=== PATIENT | male | born 1945 | race Caucasian/White ===

== ENCOUNTER 2018-09-17 02:14 | Emergency (ER) | payer OTHER ==
[~2018-09-17] VITALS: Ht 177.8 cm; Wt 84.0 kg
[~2018-09-17 02:14] MED LIST: ALLO300T PO; AMLO10TA6 PO; LEVE100S6 PO; METF-649 PO; levetiracetam PO; metformin; protonix
[2018-09-17 02:34] LABS: BASOPHILS # (AUTO) 0.03 x10^3/uL (0-0.1); BASOPHILS % (AUTO) 0 % (0-1); EOSINOPHILS # (AUTO) 0.08 x10^3/uL (0-0.4); EOSINOPHILS % (AUTO) 1 % (1-7); LYMPHOCYTES # (AUTO) 0.84 x10^3/uL (1-3.4); LYMPHOCYTES % (AUTO) 9 % (22-44); MD NO; MEAN CORPUSCULAR HGB CONC 33.7 g/dL (33.2-36.2); MEAN PLATELET VOLUME 10.4 fL (7.4-10.4); MONOCYTES # (AUTO) 0.59 x10^3/uL (0.2-0.8); MONOCYTES % (AUTO) 6 % (2-9); NEUTROPHILS # (AUTO) 7.84 x10^3/uL (1.8-6.8); NEUTROPHILS % (AUTO) 84 % (42-75); PLATELET COUNT 143 x10^3/uL (130-400); RED BLOOD COUNT 4.79 x10^6/uL (4.38-5.82); RED CELL DISTRIBUTION WIDTH 14.5 % (9.4-14.8)
[2018-09-17 02:45] LABS: MICROSCOPIC AUTO
[2018-09-17 02:46] LABS: ALBUMIN 3.9 g/dL (3.4-5.0); ANION GAP 15 mmol/L (5-15); CALCIUM 8.9 mg/dL (8.5-10.1); CHLORIDE 104 mmol/L (98-107)
[2018-09-17] MEDS ORDERED: ALLO300T PO (02:47)
[2018-09-17] MEDS ORDERED: PANT20TA3 PO (02:47)
[2018-09-17] MEDS ORDERED: LEVE250T28 PO (02:47)
[2018-09-17 02:48] LABS: CULTURE INDICATED? NO
[2018-09-17] MEDS ORDERED: LEVETIRACETAM 1,000 MG in SODIUM CHLORIDE 0.9% 100 ML IV ONE (03:30)
[2018-09-17 03:49] VITALS: BP 127/76
== END 2018-09-17 04:46 | disposition home or self-care (01) ==
LOC: ED 03:55
DX: G40.409 Other generalized epilepsy and epileptic syndromes, not intractable, without status epilepticus (principal); I10 Essential (primary) hypertension; E11.9 Type 2 diabetes mellitus without complications; Z87.891 Personal history of nicotine dependence
CPT/HCPCS: 36415; 70450; 80048; 81001; 82040; 85025; 93005; J1953; 96365

== ENCOUNTER 2019-02-10 01:17 | Emergency (ER) | payer MEDICARE ==
[~2019-02-10] VITALS: Ht 182.9 cm; Wt 88.3 kg
[~2019-02-10 01:17] MED LIST changes: -AMLO10TA6 PO; +AMLO10TA8 PO; +LEVE250T28 PO; +PANT20TA3 PO
--- NOTE | 2019-02-10 01:50 | NUR ---
FIRST CONTACT WITH PT. PT REPORTS WAKING UP ON THE FLOOR NEXT TO THE BED, BLEEDING. PT HAS A LAC NOTED UNDER THE RIGHT EYE, BRUISING NOTED TO RIGHT EYE. DENIES ANY MAJOR, BLURRED VISION, NECK OR BACK PAIN. PT HAS A HX OF SEIZURES. DOES NOT TAKE ANY ANTICOAGULANTS. BLEEDING CONTROLLED. PT'S AOX4. RESPS EVEN AND UNLABORED. ALL MONITORS IN PLACE. EDMD AT BEDSIDE TO ASSESS AT THIS TIME.
[2019-02-10] MEDS ORDERED: LIDOCAINE-MPF 1%, 2ML ONE (02:27)
[2019-02-10] MEDS ORDERED: LIDOCAINE-MPF 1%, 5ML INFIL ONE (02:30)
[2019-02-10 02:35] LABS: BASOPHILS # (AUTO) 0.06 x10^3/uL (0-0.1); BASOPHILS % (AUTO) 1 % (0-1); EOSINOPHILS % (AUTO) 1 % (1-7); LYMPHOCYTES # (AUTO) 0.63 x10^3/uL (1-3.4); LYMPHOCYTES % (AUTO) 6 % (22-44); MD NO; MEAN CORPUSCULAR HEMOGLOBIN 30.2 pg (27.5-34.5); MEAN CORPUSCULAR VOLUME 88.9 fL (81-97); MEAN PLATELET VOLUME 10.5 fL (7.4-10.4); MONOCYTES # (AUTO) 0.49 x10^3/uL (0.2-0.8); MONOCYTES % (AUTO) 5 % (2-9); NEUTROPHILS # (AUTO) 9.64 x10^3/uL (1.8-6.8); NEUTROPHILS % (AUTO) 88 % (42-75); PLATELET COUNT 142 x10^3/uL (130-400); RED BLOOD COUNT 4.74 x10^6/uL (4.38-5.82); RED CELL DISTRIBUTION WIDTH 15.2 % (9.4-14.8)
--- NOTE | 2019-02-10 02:36 | NUR ---
PT AMB TO BR WITH STEADY GAIT.
[2019-02-10 02:46] LABS: ANION GAP 5 mmol/L (5-15); CALCIUM 8.8 mg/dL (8.5-10.1); CHLORIDE 104 mmol/L (98-107); CREATININE 1.36 mg/dL (0.7-1.3)
[2019-02-10 02:50] LABS: TROPONIN I < 0.015 ng/mL (0.000-0.045)
--- NOTE | 2019-02-10 03:07 | NUR ---
EMT CLEANED WOUND AT THIS TIME. PT TOLERATED WELL.
--- NOTE | 2019-02-10 03:52 | NUR ---
PA APPLIED SUTURES ON PT'S LAC. PT TOLERATED WELL. PT'S AOX4. RESPS EVEN AND UNLABORED.
[2019-02-10] MEDS ORDERED: BACITRACIN ZINC OINT 500U/GM, 0.9 GM ONE (04:08)
[2019-02-10 04:13] VITALS: BP 136/82
--- NOTE | 2019-02-10 04:14 | NUR ---
PT GIVEN DC INSTRUCTIONS. PT'S AOX4. RESPS EVEN AND UNLABORED. PT AMB TO DC WITH STEADY GAIT. NO ACUTE DISTRESS AT DC.
== END 2019-02-10 04:15 | disposition home or self-care (01) ==
LOC: ED 02:07
DX: S06.0X0A Concussion without loss of consciousness, initial encounter (principal); S01.412A Laceration without foreign body of left cheek and temporomandibular area, initial encounter; S01.111A Laceration without foreign body of right eyelid and periocular area, initial encounter; G40.309 Generalized idiopathic epilepsy and epileptic syndromes, not intractable, without status epilepticus; I10 Essential (primary) hypertension; E11.9 Type 2 diabetes mellitus without complications; W06.XXXA Fall from bed, initial encounter; Y93.89 Activity, other specified; Y92.009 Unspecified place in unspecified non-institutional (private) residence as the place of occurrence of the external cause; Y99.8 Other external cause status
CPT/HCPCS: 12002; 12013; 36415; 70450; 80048; 82040; 84484; 85025; 93005; 99284

== ENCOUNTER 2019-04-02 18:06 | Inpatient (IN) | payer MEDICARE ==
[~2019-04-02] VITALS: Ht 182.9 cm; Wt 83.4 kg
[2019-04-02] MEDS ORDERED: MONT10TA9 PO (18:29)
[2019-04-02] MEDS ORDERED: ATOR20TA37 PO (18:30)
[2019-04-02] MEDS ORDERED: SODIUM CHLORIDE FLUSH 10ML SYR IVF ONE (18:30)
[2019-04-02] MEDS ORDERED: PANT20TA3 PO (18:34)
[2019-04-02] MEDS ORDERED: METO25TA91 PO (18:51)
[2019-04-02 18:55] LABS: BASOPHILS # (AUTO) 0.03 x10^3/uL (0-0.1); BASOPHILS % (AUTO) 0 % (0-1); EOSINOPHILS # (AUTO) 0.12 x10^3/uL (0-0.4); EOSINOPHILS % (AUTO) 1 % (1-7); LYMPHOCYTES # (AUTO) 0.55 x10^3/uL (1-3.4); LYMPHOCYTES % (AUTO) 6 % (22-44); MD NO; MEAN CORPUSCULAR HEMOGLOBIN 30.3 pg (27.5-34.5); MEAN CORPUSCULAR HGB CONC 33.4 g/dL (33.2-36.2); MEAN CORPUSCULAR VOLUME 90.7 fL (81-97); MEAN PLATELET VOLUME 10.5 fL (7.4-10.4); MONOCYTES # (AUTO) 0.27 x10^3/uL (0.2-0.8); MONOCYTES % (AUTO) 3 % (2-9); NEUTROPHILS # (AUTO) 8.13 x10^3/uL (1.8-6.8); NEUTROPHILS % (AUTO) 89 % (42-75); PLATELET COUNT 145 x10^3/uL (130-400); RED BLOOD COUNT 4.48 x10^6/uL (4.38-5.82); RED CELL DISTRIBUTION WIDTH 14.6 % (9.4-14.8)
--- NOTE | 2019-04-02 19:00 | NUR ---
ASSUMED CARE FOR THIS PT. PT WITH SZ PADS IN PLACE AND FAMILY AT BEDSIDE. PT WITH VSS AND IN NO DISTRESS WITH NO SZ ACTIVITY AT THIS TIME.
[2019-04-02 19:02] LABS: INTERNATIONAL NORMALIZED RATIO 1.04 (0.93-1.1); PROTHROMBIN TIME 10.9 Seconds (9.6-11.5)
[2019-04-02 19:03] LABS: ALBUMIN 3.8 g/dL (3.4-5.0); ANION GAP 7 mmol/L (5-15); CALCIUM 8.7 mg/dL (8.5-10.1); CHLORIDE 106 mmol/L (98-107)
[2019-04-02 19:09] LABS: ALANINE AMINOTRANSFERASE 40 U/L (12-78); ALKALINE PHOSPHATASE 82 U/L (45-117); BILIRUBIN,TOTAL 0.7 mg/dL (0.2-1.0); CREATININE 1.34 mg/dL (0.7-1.3); TOTAL PROTEIN 6.5 g/dL (6.4-8.2); TROPONIN I 0.053 ng/mL (0.000-0.045)
--- NOTE | 2019-04-02 20:04 | NUR ---
PT AWAITING CTA AND ERP RECHECK.
--- NOTE | 2019-04-02 20:55 | NUR ---
PT BACK FROM CTA AWAITING RESULTS AND ERP RECHECK
[2019-04-02] MEDS ORDERED: OMNIPAQUE 350 MG/ML, 100ML BOTTLE ONE (20:57)
--- NOTE | 2019-04-02 22:03 | NUR ---
PATIENT TAKEN OFF OXYGEN TO DETERMINE ROOM AIR 02 STAT. PATIENT 93% ON O2 AND DROPPED DOWN TO 88% ON ROOM AIR W/O O2. PATIENT WAS SLEEPING.
--- NOTE | 2019-04-02 22:11 | NUR ---
PT PLACED BACK ON O2 AFTER PULSE DROPED TO 82% ON RA.
[2019-04-02] MEDS ORDERED: ASPIRIN 81 MG TABLET CHEW PO ONE (22:30)
--- NOTE | 2019-04-02 22:41 | NUR ---
REPORT CALLED TO FLOOR PT READY TO GO.
[2019-04-02 23:54] VITALS: BP 136/75
[2019-04-03] MEDS ORDERED: SODIUM CHLORIDE 0.9% 1,000 ML IV SCH (00:39)
[2019-04-03] MEDS ORDERED: LEVETIRACETAM 100 MG/ML ORAL SOL PO ONE (01:00)
[2019-04-03] MEDS ORDERED: DOCUSATE 100 MG CAPSULE PO PRN (01:00)
[2019-04-03] MEDS ORDERED: hydrALAzine 20 MG/ML, 1ML IVPush PRN (01:00)
[2019-04-03] MEDS ORDERED: ACETAMINOPHEN 325 MG TABLET PO PRN (01:00)
[2019-04-03] MEDS ORDERED: ONDANSETRON ODT 4 MG PO PRN (01:00)
[2019-04-03] MEDS ORDERED: HEPARIN 5,000 UNITS/ML, 1ML ONE (01:09)
[2019-04-03] MEDS: HEPARIN 5,000 UNITS/ML, 1ML SQ SCH ×3 (01:12→17:08)
[2019-04-03 01:50] LABS: TROPONIN I 0.078 ng/mL (0.000-0.045)
[2019-04-03 02:43] VITALS: BP 148/74
[2019-04-03 05:53] LABS: TROPONIN I 0.056 ng/mL (0.000-0.045)
[2019-04-03 07:18] VITALS: BP 138/74
[2019-04-03] MEDS: INSULIN LISPRO 100 UNITS/ML, PEN SQ-INSULIN SCH ×4 (08:20→20:17)
[2019-04-03] MEDS: MONTELUKAST 10 MG TABLET PO SCH (08:29)
[2019-04-03] MEDS: LEVETIRACETAM 100 MG/ML ORAL SOL PO SCH ×2 (08:29→20:17)
[2019-04-03] MEDS: PANTOPRAZOLE 20MG TABLET PO SCH (08:29)
[2019-04-03] MEDS: METOPROLOL SUCCINATE 25 MG TAB.ER.24H PO SCH (08:30)
[2019-04-03] MEDS ORDERED: GADOBUTROL 10 MMOL/10 ML PFS ONE (08:54)
[2019-04-03 13:41] VITALS: BP 111/68
[2019-04-03] MEDS: ATORVASTATIN 20 MG TABLET PO SCH (20:17)
[2019-04-03 21:58] VITALS: BP 108/61
[2019-04-04] MEDS: HEPARIN 5,000 UNITS/ML, 1ML SQ SCH ×3 (01:19→17:23)
[2019-04-04 03:00] VITALS: BP 108/69
[2019-04-04 06:24] LABS: BASOPHILS # (AUTO) 0.04 x10^3/uL (0-0.1); BASOPHILS % (AUTO) 1 % (0-1); EOSINOPHILS # (AUTO) 0.15 x10^3/uL (0-0.4); EOSINOPHILS % (AUTO) 3 % (1-7); LYMPHOCYTES # (AUTO) 1.22 x10^3/uL (1-3.4); LYMPHOCYTES % (AUTO) 21 % (22-44); MD NO; MEAN CORPUSCULAR HEMOGLOBIN 29.9 pg (27.5-34.5); MEAN CORPUSCULAR HGB CONC 33.4 g/dL (33.2-36.2); MEAN CORPUSCULAR VOLUME 89.7 fL (81-97); MEAN PLATELET VOLUME 10.9 fL (7.4-10.4); MONOCYTES # (AUTO) 0.39 x10^3/uL (0.2-0.8); MONOCYTES % (AUTO) 7 % (2-9); NEUTROPHILS # (AUTO) 4.09 x10^3/uL (1.8-6.8); NEUTROPHILS % (AUTO) 69 % (42-75); PLATELET COUNT 127 x10^3/uL (130-400); RED BLOOD COUNT 4.63 x10^6/uL (4.38-5.82); RED CELL DISTRIBUTION WIDTH 14.4 % (9.4-14.8)
[2019-04-04 06:28] LABS: ANION GAP 7 mmol/L (5-15); CALCIUM 8.8 mg/dL (8.5-10.1); CHLORIDE 107 mmol/L (98-107)
[2019-04-04 06:29] LABS: CREATININE 0.97 mg/dL (0.7-1.3)
[2019-04-04 07:17] VITALS: BP 129/68
[2019-04-04] MEDS: INSULIN LISPRO 100 UNITS/ML, PEN SQ-INSULIN SCH ×4 (07:17→20:40)
[2019-04-04] MEDS: METOPROLOL SUCCINATE 25 MG TAB.ER.24H PO SCH (08:50)
[2019-04-04] MEDS: PANTOPRAZOLE 20MG TABLET PO SCH (08:50)
[2019-04-04] MEDS: MONTELUKAST 10 MG TABLET PO SCH (08:50)
[2019-04-04] MEDS: LEVETIRACETAM 100 MG/ML ORAL SOL PO SCH ×2 (08:50→20:40)
[2019-04-04 15:58] VITALS: BP 135/72
[2019-04-04 19:37] VITALS: BP 130/71
[2019-04-04] MEDS: ATORVASTATIN 20 MG TABLET PO SCH (20:40)
[2019-04-05] MEDS: HEPARIN 5,000 UNITS/ML, 1ML SQ SCH ×2 (01:22→08:07)
[2019-04-05 01:23] VITALS: BP 131/71
[2019-04-05] MEDS: INSULIN LISPRO 100 UNITS/ML, PEN SQ-INSULIN SCH ×2 (07:00→11:32)
[2019-04-05] MEDS: PANTOPRAZOLE 20MG TABLET PO SCH (08:06)
[2019-04-05] MEDS: LEVETIRACETAM 100 MG/ML ORAL SOL PO SCH (08:06)
[2019-04-05] MEDS: MONTELUKAST 10 MG TABLET PO SCH (08:06)
[2019-04-05] MEDS: METOPROLOL SUCCINATE 25 MG TAB.ER.24H PO SCH (08:07)
[2019-04-05 08:21] VITALS: BP 129/75
[2019-04-05 12:29] VITALS: BP 134/81
[2019-04-05] MEDS ORDERED: LEVE500T53 PO (15:25)
== END 2019-04-05 16:09 | disposition home or self-care (01) | DRG 100 ==
LOC: ED 19:26 → EDIP 22:12 → 4WST 23:41
PROVIDERS: ADMIT Internal Medicine; ATTEND Internal Medicine
DX: G40.909 Epilepsy, unspecified, not intractable, without status epilepticus (principal); J96.01 Acute respiratory failure with hypoxia; N17.0 Acute kidney failure with tubular necrosis; J98.11 Atelectasis; E11.9 Type 2 diabetes mellitus without complications; E78.5 Hyperlipidemia, unspecified; I10 Essential (primary) hypertension; G47.33 Obstructive sleep apnea (adult) (pediatric); K21.9 Gastro-esophageal reflux disease without esophagitis; Z77.090 Contact with and (suspected) exposure to asbestos; Z72.820 Sleep deprivation; Z81.1 Family history of alcohol abuse and dependence; Z82.49 Family history of ischemic heart disease and other diseases of the circulatory system
CPT/HCPCS: 36415; 70450; 70553; 71045; 71275; 80048; 80053; 80177; 82962; 84484; 85025; 85610; 85730; 93005; 93306; 95819; 99285; A9585; G0378; J1644; Q9967; J1815; J7030

== ENCOUNTER → 2019-04-16 | Outpatient (CLI) | payer MEDICARE ==
[~2019-04-16] MED LIST changes: +ATOR20TA37 PO; +LEVE500T53 PO; +METO25TA91 PO; +MONT10TA9 PO
== END | disposition home or self-care (01) ==
LOC: CFH 07:45
PROVIDERS: ATTEND Family Medicine
DX: J84.10 Pulmonary fibrosis, unspecified (principal); R91.8 Other nonspecific abnormal finding of lung field
CPT/HCPCS: 71250

== ENCOUNTER → 2019-11-15 | Outpatient (CLI) | payer MEDICARE | END | disposition home or self-care (01) | LOC: CFH 15:37 | PROVIDERS: ATTEND Internal Medicine Cardiovascular Disease | DX: I08.0 Rheumatic disorders of both mitral and aortic valves (principal); I11.0 Hypertensive heart disease with heart failure; E11.9 Type 2 diabetes mellitus without complications; E78.5 Hyperlipidemia, unspecified | CPT/HCPCS: 93306 ==

== ENCOUNTER 2020-03-05 09:55 | Observation (INO) | payer MEDICARE ==
[~2020-03-05] VITALS: Ht 177.8 cm; Wt 93.2 kg
[~2020-03-05 09:55] MED LIST changes: +MONT10TA11 PO; -MONT10TA9 PO
[2020-03-05 10:52] VITALS: BP 138/78
[2020-03-05 10:54] LABS: BASOPHILS # (AUTO) 0.05 x10^3/uL (0-0.1); BASOPHILS % (AUTO) 1 % (0-1); EOSINOPHILS # (AUTO) 0.24 x10^3/uL (0-0.4); EOSINOPHILS % (AUTO) 4 % (1-7); LYMPHOCYTES # (AUTO) 1.08 x10^3/uL (1-3.4); LYMPHOCYTES % (AUTO) 18 % (22-44); MD NO; MEAN CORPUSCULAR HEMOGLOBIN 29.7 pg (27.5-34.5); MEAN CORPUSCULAR HGB CONC 32.8 g/dL (33.2-36.2); MEAN CORPUSCULAR VOLUME 90.6 fL (81-97); MEAN PLATELET VOLUME 10.4 fL (7.4-10.4); MONOCYTES # (AUTO) 0.48 x10^3/uL (0.2-0.8); MONOCYTES % (AUTO) 8 % (2-9); NEUTROPHILS % (AUTO) 70 % (42-75); PLATELET COUNT 143 x10^3/uL (130-400); RED BLOOD COUNT 4.77 x10^6/uL (4.38-5.82); RED CELL DISTRIBUTION WIDTH 14.2 % (9.4-14.8)
[2020-03-05] MEDS ORDERED: METO-93 PO (11:00)
[2020-03-05] MEDS ORDERED: SODIUM CHLORIDE 0.9% 1,000 ML IV SCH (11:00)
[2020-03-05] MEDS ORDERED: GLIM1TAB7 PO (11:01)
[2020-03-05] MEDS ORDERED: LOSA25TA25 PO (11:02)
[2020-03-05 11:04] LABS: ANION GAP 7 mmol/L (5-15); CALCIUM 9.6 mg/dL (8.5-10.1); CHLORIDE 106 mmol/L (98-107); CREATININE 1.24 mg/dL (0.7-1.3)
[2020-03-05] MEDS ORDERED: LIDOCAINE-MPF 1%, 5ML ONE (11:43)
[2020-03-05] MEDS ORDERED: MIDAZOLAM 1 MG/ML, 2ML ONE (11:43)
[2020-03-05] MEDS ORDERED: VERAPAMIL 2.5 MG/ML, 2ML ONE (11:43)
[2020-03-05] MEDS ORDERED: HEPARIN 1,000 UNITS/ML, 10ML ONE (11:43)
[2020-03-05] MEDS ORDERED: FENTANYL PF 100 MCG/2ML ONE (11:43)
[2020-03-05] MEDS ORDERED: LIDOCAINE 2%, 20ML ONE (12:10)
[2020-03-05] MEDS ORDERED: BIVALIRUDIN 250 MG ONE (12:25)
[2020-03-05] MEDS ORDERED: TICAGRELOR 90 MG TABLET ONE (12:47)
[2020-03-05 13:00] VITALS: BP 152/91
[2020-03-05] MEDS: SODIUM CHLORIDE 0.9% 1,000 ML IV SCH ×2 (13:15→19:30)
[2020-03-05] MEDS ORDERED: ATORVASTATIN 20 MG TABLET PO SCH (21:00)
[2020-03-05 21:05] VITALS: BP 146/82
[2020-03-05] MEDS: TICAGRELOR 90 MG TABLET PO SCH (21:07)
[2020-03-05] MEDS: LEVETIRACETAM 500 MG TABLET PO SCH (21:07)
[2020-03-05] MEDS: metFORMIN XR 500 MG TAB.ER.24H PO SCH (21:07)
[2020-03-06 03:07] VITALS: BP 148/81
[2020-03-06 05:25] LABS: ANION GAP 9 mmol/L (5-15); CALCIUM 9.1 mg/dL (8.5-10.1); CHLORIDE 107 mmol/L (98-107)
[2020-03-06 05:26] LABS: CREATININE 1.06 mg/dL (0.7-1.3)
[2020-03-06 07:35] VITALS: BP 146/79
[2020-03-06] MEDS: metFORMIN XR 500 MG TAB.ER.24H PO SCH (08:16)
[2020-03-06] MEDS: TICAGRELOR 90 MG TABLET PO SCH (08:17)
[2020-03-06] MEDS: LEVETIRACETAM 500 MG TABLET PO SCH (08:17)
[2020-03-06] MEDS ORDERED: PANTOPRAZOLE 20MG TABLET PO SCH (09:00)
[2020-03-06] MEDS ORDERED: GLIMEPIRIDE 1 MG TABLET PO SCH (09:00)
[2020-03-06] MEDS ORDERED: METOPROLOL SUCCINATE 50 MG TAB.ER.24H PO SCH (09:00)
[2020-03-06] MEDS ORDERED: LOSARTAN 25MG TABLET PO SCH (09:00)
[2020-03-06] MEDS ORDERED: ASPIRIN 81 MG TABLET EC PO SCH (09:00)
[2020-03-06] MEDS ORDERED: MONTELUKAST 10 MG TABLET PO SCH (09:00)
[2020-03-06] MEDS ORDERED: TICA90TA PO (09:59)
[2020-03-06] MEDS ORDERED: ASPI81TA45 PO (09:59)
== END 2020-03-06 15:41 | disposition home or self-care (01) ==
LOC: CACL 09:55 → ORIP 12:51 → 5SO 12:59
PROVIDERS: ADMIT Internal Medicine Cardiovascular Disease; ATTEND Internal Medicine Cardiovascular Disease
DX: I35.0 Nonrheumatic aortic (valve) stenosis (principal); I25.10 Atherosclerotic heart disease of native coronary artery without angina pectoris; I77.1 Stricture of artery; E11.65 Type 2 diabetes mellitus with hyperglycemia; E78.5 Hyperlipidemia, unspecified; I10 Essential (primary) hypertension; K21.9 Gastro-esophageal reflux disease without esophagitis; G40.909 Epilepsy, unspecified, not intractable, without status epilepticus; Z79.899 Other long term (current) drug therapy; Z79.84 Long term (current) use of oral hypoglycemic drugs
CPT/HCPCS: 36415; 80048; 85014; 85018; 85025; 93458; 99156; 99157; C1725; C1769; C1874; C1887; C1894; C9600; G0378; J0583; J1644; J2250; J3010; J3490; Q9967

== ENCOUNTER → 2020-03-12 | Outpatient (CLI) | payer MEDICARE ==
[~2020-03-12] MED LIST changes: +ASPI81TA45 PO; +GLIM1TAB7 PO; +LOSA25TA25 PO; +METO-93 PO; +TICA90TA PO; +VISIPAQUE 320 MG/ML, 150ML BOTTLE ONE
== END | disposition home or self-care (01) ==
LOC: CVU 09:28
PROVIDERS: ATTEND Internal Medicine Cardiovascular Disease
DX: I65.23 Occlusion and stenosis of bilateral carotid arteries (principal); I35.8 Other nonrheumatic aortic valve disorders; N40.0 Benign prostatic hyperplasia without lower urinary tract symptoms; K40.20 Bilateral inguinal hernia, without obstruction or gangrene, not specified as recurrent; N28.1 Cyst of kidney, acquired
CPT/HCPCS: 71275; 74174; 93880; Q9967

== ENCOUNTER 2020-04-25 10:35 | Outpatient (CLI) | payer MEDICARE ==
[~2020-04-25 10:35] MED LIST changes: +CHOL10003 PO; +CYAN2500 PO; -PANT20TA3 PO; +PANT20TA4 PO; -VISIPAQUE 320 MG/ML, 150ML BOTTLE ONE
== END 2020-04-25 23:59 | disposition home or self-care (01) ==
LOC: CVU 10:35
PROVIDERS: ATTEND Internal Medicine Cardiovascular Disease
DX: I07.1 Rheumatic tricuspid insufficiency (principal); I11.9 Hypertensive heart disease without heart failure; I65.29 Occlusion and stenosis of unspecified carotid artery; Z95.4 Presence of other heart-valve replacement
CPT/HCPCS: 93306

== ENCOUNTER 2020-10-06 01:36 | Emergency (ER) | payer MEDICARE ==
[~2020-10-06] VITALS: Ht 182.9 cm; Wt 86.0 kg
[~2020-10-06 01:36] MED LIST changes: +AMLO-211 PO; -AMLO10TA8 PO; -METF-649 PO; +METF-734 PO; -MONT10TA11 PO; +MONT10TA96 PO
[2020-10-06 01:38] VITALS: BP 144/69
[2020-10-06] MEDS ORDERED: LEVETIRACETAM 500 MG TABLET ONE (02:23)
[2020-10-06] MEDS ORDERED: LEVETIRACETAM 500 MG TABLET PO ONE (02:30)
[2020-10-06 02:38] LABS: BASOPHILS % (AUTO) 1 % (0-1); EOSINOPHILS % (AUTO) 1 % (1-7); LYMPHOCYTES % (AUTO) 9 % (22-44); MD NO; MEAN CORPUSCULAR HEMOGLOBIN 29.7 pg (27.5-34.5); MEAN CORPUSCULAR HGB CONC 34.1 g/dL (33.2-36.2); MEAN PLATELET VOLUME 10.3 fL (7.4-10.4); MONOCYTES % (AUTO) 7 % (2-9); NEUTROPHILS % (AUTO) 82 % (42-75); PLATELET COUNT 104 x10^3/uL (130-400); RED BLOOD COUNT 4.51 x10^6/uL (4.38-5.82); RED CELL DISTRIBUTION WIDTH 14.5 % (9.4-14.8)
[2020-10-06 02:45] LABS: ALBUMIN 3.7 g/dL (3.4-5.0); ANION GAP 8 mmol/L (5-15); CALCIUM 8.9 mg/dL (8.5-10.1); CHLORIDE 104 mmol/L (98-107); CREATININE 1.24 mg/dL (0.7-1.3)
[2020-10-06 02:58] LABS: MICROSCOPIC AUTO
== END 2020-10-06 04:01 | disposition home or self-care (01) ==
LOC: ED 02:22
DX: G40.309 Generalized idiopathic epilepsy and epileptic syndromes, not intractable, without status epilepticus (principal); E11.65 Type 2 diabetes mellitus with hyperglycemia; E78.5 Hyperlipidemia, unspecified; I10 Essential (primary) hypertension
CPT/HCPCS: 36415; 80048; 81001; 82040; 85025; 93005; 99284